=== PATIENT | male | born 1985 | race African-American/Black ===

== ENCOUNTER 2016-09-30 21:09 | Emergency (ER) | payer OTHER ==
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
[2016-09-30] MEDS ORDERED: IOPAMIDOL (ISOVUE-300) 100 ML BTL IV ONE (21:31)
[2016-09-30 21:43] LABS: ADD DIFF? NO; ADD MORPH? NO; ADD SCAN? NO; ATYPICAL LYMPHOCYTE FLAG 0 (0-99); FRAGMENT RBC FLAG 0 (0-99); HEMATOCRIT 47.7 % (40.0-51.0); HEMOGLOBIN 16.5 g/dL (13.7-17.5); LEFT SHIFT FLG 0 (0-99); LIPEMIA HEMOLYSIS FLAG 90 (0-99); MEAN CELL HEMOGLOBIN 29.3 pg (27.9-34.1); MEAN CELL HEMOGLOBIN CONCENTR. 34.6 g/dL (32.4-36.7); MEAN CELL VOLUME 84.7 fL (81.5-99.8); MEAN PLATELET VOLUME 9.3 fL (8.7-11.7); PLATELET CLUMPS FLAG 0 (0-99); PLATELET COUNT 249 10^3/uL (150-400); RED BLOOD CELL COUNT 5.63 10^6/uL (4.40-6.38); RED CELL DISTRIBUTION WIDTH 12.3 % (11.5-15.2)
[2016-09-30 22:13] LABS: ANION GAP 14 mEq/L (8-16); CALCIUM 9.6 mg/dL (8.5-10.4); CARBON DIOXIDE 27 mEq/l (22-31); CHLORIDE 100 mEq/L (97-110); CREATININE 1.1 mg/dL (0.7-1.3); GLOMERULAR FILTRATION RATE > 60; GLUCOSE 100 mg/dL (70-100); POTASSIUM 3.5 mEq/L (3.5-5.2); SODIUM 141 mEq/L (134-144)
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
[2016-09-30 22:30] LABS: ETHANOL SERUM 355 mg/dL (0-10)
[2016-10-01] MEDS ORDERED: ACETAMINOPHEN 500 MG TAB ONE (08:35)
[2016-10-01] MEDS ORDERED: ACETAMINOPHEN 500 MG TAB PO ONE (08:40)
[2016-10-01 10:11] LABS: MUCUS TRACE /lpf (NONE-1+)
[2016-10-01 11:18] VITALS: BP 123/98; PULSE 70; RESP 18; TEMP 98.1; O2SAT 94
== END 2016-10-01 11:17 | disposition home or self-care (01) ==
DX: S19.9XXA Unspecified injury of neck, initial encounter (principal); F10.120 Alcohol abuse with intoxication, uncomplicated; V48.5XXA Car driver injured in noncollision transport accident in traffic accident, initial encounter; Y92.410 Unspecified street and highway as the place of occurrence of the external cause; Y93.89 Activity, other specified
CPT/HCPCS: 80305; G0480; L0120; Q9967